=== PATIENT | female | born 1985 | race Caucasian/White ===

== ENCOUNTER 2021-09-02 16:53 | Emergency (ER) | payer OTHER, SELFPAY ==
[2021-09-02 17:07] VITALS: BP 130/88; PULSE 84; RESP 14; TEMP 36.6; O2SAT 99
--- NOTE | 2021-09-02 18:39 | ED.HA ---
HPI - Headache General Chief Complaint: Headache Stated Complaint: COLEMAN Time Seen by Provider: 09/02/21 17:59 Source: patient Mode of arrival: ambulatory Limitations: no limitations History of Present Illness HPI Narrative: This is a 35-year-old female that presents to the emergency department for migraine headache. Reports history of migraines. Reports a pounding headache. Associated with nausea. She has been taking her prescribed migraine medications with little relief. She has had this headache over the last 5 days. Reports she thinks it is associated with her menstrual cycle. She has a neurologist that she follows with for her migraines. Reports this is a pretty typical migraine for her. Denies fever, vision changes, vomiting, numbness or weakness. Related Data Home Medications Medication Instructions Recorded Confirmed apremilast [Otezla] 30 mg PO BID 09/02/21 09/02/21 atogepant [Qulipta] 60 mg PO DAILY 09/02/21 buspirone 30 mg PO BID 09/02/21 cariprazine [Vraylar] 3 mg PO DAILY 09/02/21 cyclobenzaprine [Flexeril] 10 mg PO HS 09/02/21 doxycycline monohydrate [Oracea] 40 mg PO DAILY 09/02/21 duloxetine [Cymbalta] 60 mg PO BID 09/02/21 gabapentin 300 mg PO QA 09/02/21 gabapentin 600 mg PO HS 09/02/21 hydroxychloroquine 200 mg PO DAILY 09/02/21 lemborexant [Dayvigo] 5 mg PO HS 09/02/21 lisdexamfetamine [Vyvanse] 50 mg PO DAILY 09/02/21 mirabegron [Myrbetriq] 25 mg PO DAILY 09/02/21 nortriptyline 10 mg PO HS 09/02/21 quetiapine [Seroquel] 100 mg PO HS 09/02/21 quetiapine [Seroquel] 400 mg PO DAILY 09/02/21 rabeprazole 20 mg PO BID 09/02/21 topiramate [Topamax] 100 mg PO BID 09/02/21 Allergies Allergy/AdvReac Type Severity Reaction Status Date / Time amitriptyline Allergy Anaphylaxis Verified 09/02/21 17:29 clindamycin Allergy Hives Verified 09/02/21 17:29 codeine Allergy Hives Verified 09/02/21 17:29 Penicillins Allergy Hives Verified 09/02/21 17:29 perphenazine Allergy Anaphylaxis Verified 09/02/21 17:29 Sulfa (Sulfonamide Allergy Hives Verified 09/02/21 17:29 Antibiotics) Review of Systems Review of Systems: CONSTITUTIONAL: Denies fever EYES: Denies visual changes GASTROINTESTINAL: Denies vomiting NEUROLOGIC: Reports headache. Denies numbness, or weakness. All systems reviewed & are unremarkable except as noted in HPI and below PMFSH Past Medical History Medical History (Updated 09/02/21 @ 20:35 by Samantha Olivier PA-C) History of bipolar disorder History of gastroesophageal reflux (GERD) History of migraine Social History Social History (Updated 09/02/21 @ 18:41 by Saamntha Olivier PA-C) Substance use: never Exam Narrative: GENERAL: Well-appearing, well-nourished, and in no acute distress. HEAD: Normocephalic, atraumatic. EYES: PERRLA and EOMI. ENT: Nares clear, no rhinorrhea or epistaxis. Mucous membranes moist. Oropharynx without tonsillar hypertrophy exudate or other lesions. Bilateral TMs pearly florez non-bulging NECK: Supple. No adenopathy or masses. CHEST: Clear to auscultation. No respiratory distress. No wheezes rales or rhonchi HEART: Regular rate and rhythm. No murmur heard. Normal peripheral pulses. EXTREMITIES: Normal range of motion. No edema. Strength equal in bilateral upper and lower extremities (5/5) SKIN: Warm, dry, no rash. NEURO: No focal deficits. Alert and oriented x3. CN II-XII grossly intact PSYCH: Normal mood and affect Course Vital Signs Vital signs: Vital Signs Temperature 97.9 F 09/02/21 17:07 Pulse Rate 84 09/02/21 17:07 Respiratory Rate 14 09/02/21 17:07 Blood Pressure 130/88 09/02/21 17:07 Pulse Oximetry 99 09/02/21 17:07 Temperature 97.9 F 09/02/21 17:07 Pulse Rate 84 09/02/21 17:07 Respiratory Rate 14 09/02/21 17:07 Blood Pressure 130/88 09/02/21 17:07 Pulse Oximetry 99 09/02/21 17:07 MDM - Headache MDM Narrative Medical decision making narrative: Patient presents to the emergenc
[2021-09-02] MEDS: SODIUM CHLORIDE 0.9% IV 1,000 ML 999 ML IV CONT (18:54)
[2021-09-02] MEDS: KETOROLAC 30 MG/ML VIAL (*BKC) IV PUSH (18:55)
[2021-09-02] MEDS: METOCLOPRAMIDE HCL INJ 10 MG/2 ML VIAL IV PUSH (18:55)
[2021-09-02] MEDS: diphenhydrAMINE HCl INJ 50 MG/ML VIAL 25 MG IV PUSH (18:55)
== END 2021-09-02 21:20 | disposition home or self-care (01) ==
PROVIDERS: Emergency Provider Emergency Medicine
DX: G43.909 Migraine, unspecified, not intractable, without status migrainosus (principal); F31.9 Bipolar disorder, unspecified; K21.9 Gastro-esophageal reflux disease without esophagitis
CPT/HCPCS: 81025; 96361; 96374; 96375; 99284; J0131; J1100; J1200; J1885; J2765; J7030

== ENCOUNTER 2023-01-24 17:31 | Emergency (ER) | payer BC, SELFPAY ==
[2023-01-24 17:32] VITALS: BP 130/85; PULSE 94; RESP 19; TEMP 36.3; O2SAT 98
--- NOTE | 2023-01-24 17:34 | ED.HA ---
HPI - Headache General Chief Complaint: Headache Stated Complaint: migraine Time Seen by Provider: 01/24/23 17:33 Source: patient and family (spouse) Mode of arrival: ambulatory Limitations: no limitations History of Present Illness HPI Narrative: patient is a pleasant 37 yo female with a past medical history of migraines, bipolar disorder, and GERD who presents to the ED today ambulatory with a steady gait for evaluation of a migraine headache that is typical of her normal that has been going on over the last 24 hours. She states she took her prescribed Imitrex without relief. She states that she is currently going through studies for to get an APAP machine for sleep apnea. She states she has been having more headaches since then. She states she sees a neurologist at [facility] and she saw him about 1 month ago and then will see him again in March. She states this is her typical migraine headache. She has nausea as well as light sensitivity. Denies any sound sensitivity. Denies any fever, chills, visual disturbances, numbness and tingling right upper lower extremities, weakness upper lower extremities, or any other symptoms. denies chance of , Related Data Home Medications Medication Instructions Recorded Confirmed apremilast 30 mg tablet (Otezla) 30 mg PO BID 09/02/21 09/02/21 atogepant 60 mg tablet (Qulipta) 60 mg PO DAILY 09/02/21 buspirone 30 mg tablet 30 mg PO BID 09/02/21 cariprazine 3 mg capsule (Vraylar) 3 mg PO DAILY 09/02/21 cyclobenzaprine 10 mg tablet 10 mg PO HS 09/02/21 doxycycline monohydrate 40 mg 40 mg PO DAILY 09/02/21 capsule,immediate - delay release (Oracea) duloxetine 60 mg capsule,delayed 60 mg PO BID 09/02/21 release (Cymbalta) gabapentin 300 mg tablet 300 mg PO QAM 09/02/21 gabapentin 600 mg tablet 600 mg PO HS 09/02/21 hydroxychloroquine 200 mg tablet 200 mg PO DAILY 09/02/21 lemborexant 5 mg tablet (Dayvigo) 5 mg PO HS 09/02/21 lisdexamfetamine 50 mg capsule 50 mg PO DAILY 09/02/21 (Vyvanse) mirabegron 25 mg tablet,extended 25 mg PO DAILY 09/02/21 release 24 hr (Myrbetriq) nortriptyline 10 mg capsule 10 mg PO HS 09/02/21 quetiapine 100 mg tablet (Seroquel) 100 mg PO HS 09/02/21 quetiapine 400 mg tablet (Seroquel) 400 mg PO DAILY 09/02/21 rabeprazole 20 mg tablet,delayed 20 mg PO BID 09/02/21 release topiramate 100 mg tablet (Topamax) 100 mg PO BID 09/02/21 Allergies Allergy/AdvReac Type Severity Reaction Status Date / Time amitriptyline Allergy Anaphylaxis Verified 01/24/23 17:36 clindamycin Allergy Hives Verified 01/24/23 17:36 codeine Allergy Hives Verified 01/24/23 17:36 Penicillins Allergy Hives Verified 01/24/23 17:36 perphenazine Allergy Anaphylaxis Verified 01/24/23 17:36 Sulfa (Sulfonamide Allergy Hives Verified 01/24/23 17:36 Antibiotics) bacitracin AdvReac Hives Verified 01/24/23 17:36 [From Neosporin ([id number])] mupirocin AdvReac Hives Verified 01/24/23 17:36 neomycin AdvReac Hives Verified 01/24/23 17:36 [From Neosporin ([id number])] polymyxin B AdvReac Hives Verified 01/24/23 17:36 [From Neosporin ([id number])] Review of Systems Review of Systems: CONSTITUTIONAL: Denies fever, chills, or sweats. EYES: Denies visual changes, redness, or discharge. ENT: Denies rhinorrhea, congestion, sore throat, or otalgia. CARDIOVASCULAR: Denies chest pain, palpitations, or edema. RESPIRATORY: Denies cough or dyspnea. GASTROINTESTINAL:nausea. denies vomiting or abdominal pain. SKIN: Denies rash or itching. MUSCULOSKELETAL: Denies back pain, joint pain, or myalgia. NEUROLOGIC: typical migraine headache. denies numbness, or weakness. PSYCHIATRIC: Denies anxiety or depression. All systems reviewed & are unremarkable except as noted in HPI and below PMFSH Past Medical History Medical History History of bipolar disorder History of gastroes
[2023-01-24] MEDS: SODIUM CHLORIDE 0.9% IV 1,000 ML 999 ML IV CONT (18:18)
[2023-01-24] MEDS: METOCLOPRAMIDE HCL INJ 10 MG/2 ML VIAL IV PUSH (18:19)
[2023-01-24] MEDS: KETOROLAC 30 MG/ML VIAL (*BKC) IV PUSH (18:22)
[2023-01-24] MEDS: diphenhydrAMINE HCl INJ 50 MG/ML VIAL 25 MG IV PUSH (18:24)
[2023-01-24] MEDS: DIHYDROERGOTAMINE MESYLATE 1 MG/ML AMP IV PUSH (18:38)
[2023-01-24 19:23] VITALS: BP 126/95; PULSE 67; RESP 16; O2SAT 96
== END 2023-01-24 19:24 | disposition home or self-care (01) ==
PROVIDERS: Emergency Provider Nurse Practitioner
DX: G43.909 Migraine, unspecified, not intractable, without status migrainosus (principal); K21.9 Gastro-esophageal reflux disease without esophagitis; F31.9 Bipolar disorder, unspecified
CPT/HCPCS: 96361; 96374; 96375; 99284; J1110; J1200; J1885; J2765; J7030

== ENCOUNTER 2023-04-20 04:58 | Emergency (ER) | payer BC, SELFPAY ==
[2023-04-20 05:01] VITALS: BP 129/80; PULSE 118; RESP 19; TEMP 36.3; O2SAT 98
--- NOTE | 2023-04-20 05:26 | ED.GENADULT ---
HPI - General Adult General Chief complaint: Headache Stated complaint: COLEMAN, v/d Time Seen by Provider: 04/20/23 05:11 History of Present Illness HPI narrative: Patient 37-year-old female who presents the emergency department with chief complaint of headache. Patient reports that she has prior history of migraines reports that this is not the worst headache of her life but reports that for several days she has been having discomfort and reports that has not been relieved with her home medications. Patient states that she is started vomiting and has not been able to keep things down. Related Data Home Medications Medication Instructions Recorded Confirmed apremilast 30 mg tablet (Otezla) 30 mg PO BID 09/02/21 09/02/21 atogepant 60 mg tablet (Qulipta) 60 mg PO DAILY 09/02/21 buspirone 30 mg tablet 30 mg PO BID 09/02/21 cariprazine 3 mg capsule (Vraylar) 3 mg PO DAILY 09/02/21 cyclobenzaprine 10 mg tablet 10 mg PO HS 09/02/21 doxycycline monohydrate 40 mg 40 mg PO DAILY 09/02/21 capsule,immediate - delay release (Oracea) duloxetine 60 mg capsule,delayed 60 mg PO BID 09/02/21 release (Cymbalta) gabapentin 300 mg tablet 300 mg PO QAM 09/02/21 gabapentin 600 mg tablet 600 mg PO HS 09/02/21 hydroxychloroquine 200 mg tablet 200 mg PO DAILY 09/02/21 lemborexant 5 mg tablet (Dayvigo) 5 mg PO HS 09/02/21 lisdexamfetamine 50 mg capsule 50 mg PO DAILY 09/02/21 (Vyvanse) mirabegron 25 mg tablet,extended 25 mg PO DAILY 09/02/21 release 24 hr (Myrbetriq) nortriptyline 10 mg capsule 10 mg PO HS 09/02/21 quetiapine 100 mg tablet (Seroquel) 100 mg PO HS 09/02/21 quetiapine 400 mg tablet (Seroquel) 400 mg PO DAILY 09/02/21 rabeprazole 20 mg tablet,delayed 20 mg PO BID 09/02/21 release topiramate 100 mg tablet (Topamax) 100 mg PO BID 09/02/21 Allergies Allergy/AdvReac Type Severity Reaction Status Date / Time amitriptyline Allergy Anaphylaxis Verified 04/20/23 05:09 clindamycin Allergy Hives Verified 04/20/23 05:09 codeine Allergy Hives Verified 04/20/23 05:09 Penicillins Allergy Hives Verified 04/20/23 05:09 perphenazine Allergy Anaphylaxis Verified 04/20/23 05:09 Sulfa (Sulfonamide Allergy Hives Verified 04/20/23 05:09 Antibiotics) bacitracin AdvReac Hives Verified 04/20/23 05:09 [From Neosporin ([id number])] mupirocin AdvReac Hives Verified 04/20/23 05:09 neomycin AdvReac Hives Verified 04/20/23 05:09 [From Neosporin ([id number])] polymyxin B AdvReac Hives Verified 04/20/23 05:09 [From Neosporin ([id number])] Review of Systems Review of Systems: A 10 system review of systems was completed on the patient and is negative except for what is stated in the HPI. Nursing and ancillary documentation was reviewed. [facility] Past Medical History Medical History History of bipolar disorder History of gastroesophageal reflux (GERD) History of migraine Social History Social History Substance use: never Exam Narrative: GENERAL: Well-appearing, well-nourished, and in no acute distress. HEAD: Normocephalic, atraumatic. EYES: PERRLA and EOMI. ENT: Nares clear, no rhinorrhea or epistaxis. Mucous membranes moist. NECK: Supple. CHEST: Clear to auscultation. No respiratory distress. HEART: Regular rate and rhythm. No murmur heard. Normal peripheral pulses. ABDOMEN: Soft, nontender, nondistended, normal active bowel sounds. EXTREMITIES: Normal range of motion. No edema. SKIN: Warm, dry, no rash. NEURO: No focal deficits. Alert and oriented x3. PSYCH: Normal mood and affect. Course Vital Signs Vital signs: Vital Signs Temperature 36.3 C L 04/20/23 05:01 Pulse Rate 118 H 04/20/23 05:01 Respiratory Rate 19 04/20/23 05:01 Blood Pressure 129/80 04/20/23 05:01 Pulse Oximetry 98 04/20/23 05:01 Oxygen Del
[2023-04-20] MEDS: KETOROLAC 30 MG/ML VIAL (*BKC) 15 MG IV PUSH (05:39)
[2023-04-20] MEDS: diphenhydrAMINE HCl INJ 50 MG/ML VIAL IV PUSH (05:46)
[2023-04-20] MEDS: METOCLOPRAMIDE HCL INJ 10 MG/2 ML VIAL IV PUSH (05:50)
[2023-04-20] MEDS: MAGNESIUM SULF 1 GM/D5W 100 ML 1 GM/100 ML BAG IVPB (05:56)
[2023-04-20] MEDS: SODIUM CHLORIDE 0.9% IV 1,000 ML 999 ML IV CONT (05:56)
== END 2023-04-20 07:04 | disposition home or self-care (01) ==
PROVIDERS: Emergency Provider Emergency Medicine
DX: G43.909 Migraine, unspecified, not intractable, without status migrainosus (principal); K21.9 Gastro-esophageal reflux disease without esophagitis; F31.9 Bipolar disorder, unspecified
CPT/HCPCS: 96365; 96375; 99284; J1100; J1200; J1885; J2765; J3475; J7030

== ENCOUNTER 2023-04-27 16:39 | Emergency (ER) | payer BC, SELFPAY ==
[2023-04-27 16:40] VITALS: BP 159/99; PULSE 106; RESP 18; TEMP 36.1; O2SAT 97
--- NOTE | 2023-04-27 16:50 | ED.HA ---
HPI - Headache General Chief Complaint: Headache <DOUGLAS Fuentes Last Filed: 04/27/23 17:03> Stated Complaint: migraine <DOUGLAS Fuentes Last Filed: 04/27/23 17:03> Time Seen by Provider: 04/27/23 17:37 <DOUGLAS Fuentes Last Filed: 04/27/23 17:03> Source: patient <DOUGLAS Fuentes Last Filed: 04/27/23 17:03> Mode of arrival: ambulatory <DOUGLAS Fuentes Last Filed: 04/27/23 17:03> Limitations: no limitations <DOUGLAS Fuentes Last Filed: 04/27/23 17:03> History of Present Illness HPI Narrative: Patient is a 37 y/o female who presents to the ED with c/o migraine x3d. Patient reports hx of migraines. Typically a few per week. She does see a neurologist. Typically on several meds for her migraines, including Sumatriptan, Zolmitriptan, compazine, reglan, Ketoralac. She states she has been out of her medications and waiting on her neurologist to refill. She states this current migraine is present frontally and around to her occipital region. Feels typical of her normal migraines. Reports nausea, denies vomiting, dizziness, lightheadedness, vision changes, photophobia/phonophobia, neck pain, fevers. Patient took Tylenol @ 4pm today. <DOUGLAS Fuentes Last Filed: 04/27/23 17:03> Related Data Home Medications: Home Medications Medication Instructions Recorded Confirmed apremilast 30 mg tablet (Otezla) 30 mg PO BID 09/02/21 09/02/21 atogepant 60 mg tablet (Qulipta) 60 mg PO DAILY 09/02/21 buspirone 30 mg tablet 30 mg PO BID 09/02/21 cariprazine 3 mg capsule (Vraylar) 3 mg PO DAILY 09/02/21 cyclobenzaprine 10 mg tablet 10 mg PO HS 09/02/21 doxycycline monohydrate 40 mg 40 mg PO DAILY 09/02/21 capsule,immediate - delay release (Oracea) duloxetine 60 mg capsule,delayed 60 mg PO BID 09/02/21 release (Cymbalta) gabapentin 300 mg tablet 300 mg PO QAM 09/02/21 gabapentin 600 mg tablet 600 mg PO HS 09/02/21 hydroxychloroquine 200 mg tablet 200 mg PO DAILY 09/02/21 lemborexant 5 mg tablet (Dayvigo) 5 mg PO HS 09/02/21 lisdexamfetamine 50 mg capsule 50 mg PO DAILY 09/02/21 (Vyvanse) mirabegron 25 mg tablet,extended 25 mg PO DAILY 09/02/21 release 24 hr (Myrbetriq) nortriptyline 10 mg capsule 10 mg PO HS 09/02/21 quetiapine 100 mg tablet (Seroquel) 100 mg PO HS 09/02/21 quetiapine 400 mg tablet (Seroquel) 400 mg PO DAILY 09/02/21 rabeprazole 20 mg tablet,delayed 20 mg PO BID 09/02/21 release topiramate 100 mg tablet (Topamax) 100 mg PO BID 09/02/21 <Sharee Mcmullen PA-C - Last Filed: 04/27/23 17:03> Allergies/Adverse Reactions: Allergies Allergy/AdvReac Type Severity Reaction Status Date / Time amitriptyline Allergy Anaphylaxis Verified 04/20/23 05:09 clindamycin Allergy Hives Verified 04/20/23 05:09 codeine Allergy Hives Verified 04/20/23 05:09 Penicillins Allergy Hives Verified 04/20/23 05:09 perphenazine Allergy Anaphylaxis Verified 04/20/23 05:09 Sulfa (Sulfonamide Allergy Hives Verified 04/20/23 05:09 Antibiotics) bacitracin AdvReac Hives Verified 04/20/23 05:09 [From Neosporin ([id number])] mupirocin AdvReac Hives Verified 04/20/23 05:09 neomycin AdvReac Hives Verified 04/20/23 05:09 [From Neosporin ([id number])] polymyxin B AdvReac Hives Verified 04/20/23 05:09 [From Neosporin ([id number])] <Sharee Mcmullen PA-C - Last Filed: 04/27/23 17:03> Review of Systems Eyes: Eyes: Denies change in vision and Denies photophobia <DOUGLAS Fuentes Last Filed: 04/27/23 17:03> ENT: Denies dizziness <Sharee Mcmullen PA-C - Last Filed: 04/27/23 17:03> Gastrointestinal: Gastrointestinal: Reports nausea and Denies vomiting <DOUGLAS Fuentes Last Filed: 04/27/23 17:03> Neurologic: Denies dizziness, Reports headache(s), Denies numbness and Denies weakness <Sharee Yang
[2023-04-27] MEDS: SUMAtriptan SUCCINATE 25 MG TABLET 100 MG PO (17:04)
[2023-04-27] MEDS: METOCLOPRAMIDE HCL 10 MG TABLET PO (17:05)
[2023-04-27] MEDS: PROCHLORPERAZINE MALEATE 5 MG TABLET 10 MG PO (17:05)
[2023-04-27] MEDS: diphenhydrAMINE HCl CAP 25 MG CAPSULE PO (17:06)
[2023-04-27] MEDS: KETOROLAC (*BKC) 60 MG/2 ML VIAL IM (17:06)
[2023-04-27] MEDS: MAGNESIUM SULF 2 GM/WATER 50ML 2 GM/50 ML BAG IVPB (18:38)
[2023-04-27 18:53] LABS: Basophils Percent Auto 0.2 % (0.2-1.2); Eosinophils Absolute Auto 0.1 K/mm3 (0-0.3); Eosinophils Percent Auto 1.1 % (0-4.4); Hematocrit 36.5 % (37.0-47.0); Hemoglobin 12.2 g/dL (12.0-15.0); Immature Granulocyte Absolute 0.07 K/mm3 (0.00-0.031); Immature Granulocyte Percent A 0.8 % (0-0.5); Lymphocytes Absolute Auto 3.01 K/mm3 (0.9-3.2); Lymphocytes Percent Auto 34.4 % (18.3-44.2); Mean Corpuscular HGB Conc 33.4 g/dl (32-36); Mean Corpuscular Hemoglobin 30.4 pg (26-34); Mean Platelet Volume 9.5 fl (7.4-10.4); Monocytes Absolute Auto 0.7 K/mm3 (0.1-0.6); Monocytes Percent Auto 8.5 % (2.6-8.5); Neutrophils Absolute Auto 4.8 K/mm3 (1.3-6.7); Platelet Count Result 321 k/mm3 (150-375); Red Blood Count 4.01 M/mm3 (4.2-5.4); Red Cell Distribution Width 13.2 % (11.5-14.5); White Blood Count 8.8 K/mm3 (4.5-10.0)
[2023-04-27 19:06] LABS: Alanine Aminotransferase 20 U/L (6-35); Albumin Level 4.5 g/dL (3.5-5.1); Alkaline Phosphatase 71 U/L (38-126); Anion Gap 13 mmol/L (8-16); Aspartate Amino Transferase 25 U/L (14-36); Bilirubin,Total 0.3 mg/dL (0.2-1.3); Blood Urea Nitrogen 12 mg/dL (7-17); Calcium 9.1 mg/dL (8.4-10.2); Carbon Dioxide 21 mmol/L (22-30); Chloride 104 mmol/L (98-107); Estimated CRCL calculation 94 ml/min; Estimated Glomerular Filt Rate > 60; Glucose 92 mg/dL (65-110); Magnesium 1.8 mg/dL (1.6-2.3); Phosphorus 4.7 mg/dL (2.5-4.5); Potassium 4.1 mmol/L (3.4-5.0); Sodium 138 mmol/L (137-145)
[2023-04-27 19:12] VITALS: BP 122/91; PULSE 80; RESP 18; O2SAT 97
[2023-04-27 19:41] VITALS: BP 122/80; PULSE 74; RESP 18; O2SAT 97
== END 2023-04-27 19:43 | disposition home or self-care (01) ==
PROVIDERS: Emergency Provider Physician Assistant
DX: R51.9 Headache, unspecified (principal); F31.9 Bipolar disorder, unspecified; K21.9 Gastro-esophageal reflux disease without esophagitis
CPT/HCPCS: 36415; 80053; 83735; 84100; 85025; 96365; 96372; 99284; A9270; J1885; J3475

== ENCOUNTER 2023-07-20 09:47 | Emergency (ER) | payer BC, SELFPAY ==
[2023-07-20] VITALS (9 sets, daily range): BP systolic 104–136; BP diastolic 75–85; PULSE 83–120; RESP 14–20; TEMP 36.5–36.8; O2SAT 97–100
--- NOTE | 2023-07-20 12:37 | ED.HA ---
HPI - Headache General Chief Complaint: Headache Stated Complaint: migraine Time Seen by Provider: 07/20/23 12:37 Source: patient and old records reviewed Mode of arrival: ambulatory Limitations: no limitations History of Present Illness HPI Narrative: Patient is a 37-year-old female who presents the ED with report of migraine headache. Patient has a long history of migraines and sees a neurologist at [facility] [address]. She takes imitrex and nurtec for her migraines, denies improvement of her current migraine with these medicines. She has also typically prescribed ketorlac, reglan, compazine for her migraines. She reports having a persistent migraine for the last 4-5 days. Feels typical of her normal migraines. States pain is mostly present in posterior head. Reports nausea, denies photophobia, phonophobia, vomiting, vision changes, fevers, focal weakness, numbness. Scheduled to see her neurologist in August. Related Data Home Medications Medication Instructions Recorded Confirmed apremilast 30 mg tablet (Otezla) 30 mg PO BID 09/02/21 09/02/21 atogepant 60 mg tablet (Qulipta) 60 mg PO DAILY 09/02/21 buspirone 30 mg tablet 30 mg PO BID 09/02/21 cariprazine 3 mg capsule (Vraylar) 3 mg PO DAILY 09/02/21 cyclobenzaprine 10 mg tablet 10 mg PO HS 09/02/21 doxycycline monohydrate 40 mg 40 mg PO DAILY 09/02/21 capsule,immediate - delay release (Oracea) duloxetine 60 mg capsule,delayed 60 mg PO BID 09/02/21 release (Cymbalta) gabapentin 300 mg tablet 300 mg PO QAM 09/02/21 gabapentin 600 mg tablet 600 mg PO HS 09/02/21 hydroxychloroquine 200 mg tablet 200 mg PO DAILY 09/02/21 lemborexant 5 mg tablet (Dayvigo) 5 mg PO HS 09/02/21 lisdexamfetamine 50 mg capsule 50 mg PO DAILY 09/02/21 (Vyvanse) mirabegron 25 mg tablet,extended 25 mg PO DAILY 09/02/21 release 24 hr (Myrbetriq) nortriptyline 10 mg capsule 10 mg PO HS 09/02/21 quetiapine 100 mg tablet (Seroquel) 100 mg PO HS 09/02/21 quetiapine 400 mg tablet (Seroquel) 400 mg PO DAILY 09/02/21 rabeprazole 20 mg tablet,delayed 20 mg PO BID 09/02/21 release topiramate 100 mg tablet (Topamax) 100 mg PO BID 09/02/21 Allergies Allergy/AdvReac Type Severity Reaction Status Date / Time amitriptyline Allergy Anaphylaxis Verified 07/20/23 09:51 clindamycin Allergy Hives Verified 07/20/23 09:51 codeine Allergy Hives Verified 07/20/23 09:51 Penicillins Allergy Hives Verified 07/20/23 09:51 perphenazine Allergy Anaphylaxis Verified 07/20/23 09:51 Sulfa (Sulfonamide Allergy Hives Verified 07/20/23 09:51 Antibiotics) bacitracin AdvReac Hives Verified 07/20/23 09:51 [From Neosporin ([id number])] mupirocin AdvReac Hives Verified 07/20/23 09:51 neomycin AdvReac Hives Verified 07/20/23 09:51 [From Neosporin ([id number])] polymyxin B AdvReac Hives Verified 07/20/23 09:51 [From Neosporin ([id number])] Review of Systems Review of Systems: CONSTITUTIONAL: Denies fever, chills, or sweats. ENT: See HPI. GASTROINTESTINAL: See HPI. NEUROLOGIC: See HPI. All systems reviewed & are unremarkable except as noted in HPI and below PMFSH Past Medical History Medical History History of bipolar disorder History of gastroesophageal reflux (GERD) History of migraine Social History Social History Substance use: never Exam Narrative: GENERAL: Well appearing, obese with BMI of 36.3, non-toxic, in no acute distress. HEAD: Normocephalic, atraumatic. EYES: PERRL/EOMI, conjunctiva clear. RESPIRATORY: Airway patent, respirations nonlabored. Clear to auscultation bilaterally, no rales, rhonchi, wheezing. CARDIOVASCULAR: Borderline tachycardic with regular rhythm without murmurs, rubs, or gallops. MUSCULOSKELETAL: Moves all extremities. No gross deformities. SKIN: Warm, dry, normal color. NEURO: A&O
[2023-07-20] MEDS: ACETAMINOPHEN 500 MG TABLET 1000 MG PO (13:03)
[2023-07-20] MEDS: SODIUM CHLORIDE 0.9% IV 1,000 ML 999 ML IV CONT (13:03)
[2023-07-20] MEDS: KETOROLAC 30 MG/ML VIAL (*BKC) IV PUSH (13:04)
[2023-07-20] MEDS: PROCHLORPERAZINE EDISYLATE 10 MG/2 ML VIAL IV PUSH (13:04)
[2023-07-20] MEDS: diphenhydrAMINE HCl INJ 50 MG/ML VIAL 25 MG IV PUSH (13:05)
[2023-07-20] MEDS: METOCLOPRAMIDE HCL INJ 10 MG/2 ML VIAL IV PUSH (13:05)
== END 2023-07-20 14:55 | disposition home or self-care (01) ==
PROVIDERS: Emergency Provider Physician Assistant
DX: G43.909 Migraine, unspecified, not intractable, without status migrainosus (principal); F31.9 Bipolar disorder, unspecified; K21.9 Gastro-esophageal reflux disease without esophagitis
CPT/HCPCS: 96361; 96374; 96375; 99284; A9270; J0780; J1200; J1885; J2765; J7030

== ENCOUNTER 2023-12-21 00:49 | Day surgery (SDC) | payer BC, SELFPAY ==
--- NOTE | 2023-12-14 15:52 | PC.NURSE ---
Report to the Outpatient Waiting Room, entrance under the green pavilion located off [facility], at time _06:00AM on date _12/21/23 . Planned Procedure Time: _07:30AM . Time changes happen often and if your time is changed the preop area will call you the afternoon before. - You and your visitor will be asked to self-screen and do not enter if you have any COVID symptoms. - A mask is optional within the hospital at this time. Patients may have clear liquids (water, carbonated beverages, clear teas, apple juice) until 3 hours prior to surgery with a maximum of 20 ounces. - No food from midnight until time of surgery Take the following medications with a SIP of water the morning of surgery: _QULIPTA, BUSPIRONE, ADDERALL, CYMBLATA, GABAPENTIN, SINGULAIR, SEROQUEL, RABERPRAZOLE__*VALIUM IF NEEDED* DO NOT STOP ANY OF YOUR OTHER PRESCRIPTION MEDICATIONS PRIOR TO SURGERY ?EXCEPT THE FOLLOWING Medications to discontinue per physician ___TAKE YOUR NEEDED MEDS IF YOU EXPERIENCE A MIGRAINE OR AN EPISODE OF CYCLICAL VOMITING-PLEASE NOTIFY US IF YOU ARE EXPERIENCING INTRACTABLE VOMITING OR UNRESOLVED MIGRAINE SYMPTOMS THE DAY OF SURGERY Date to take last dose____N/A Please no make-up, nail maori, hairspray, perfume, deodorant, or body powder the day of surgery. No jewelry (including any body piercings) or valuables the day of surgery, leave them at home. Please take a shower or bath the night before, or the morning of, surgery with an antibacterial soap. Wear comfortable, loose fitting clothing. Children are encouraged to wear pajamas. - Jewelry must be removed prior to entering the operating room. Rings and piercings that are not removed may be cut off. - The hospital will not accept responsibility for valuables. - Please leave all valuables, including medications, at home the day of surgery. If you are going home after surgery, a licensed team otr truck driver must drive you home. - NO public transportation without another adult if you receive anesthesia. - We recommend that an adult stay with you for 24 hours following discharge. - We also recommend that you do not drive, make important decision, drink alcoholic beverages, or take any drugs that were not prescribed by your health care provider for at least 24 hours after your discharge time. Follow any additional instructions given to you from your surgeon. If you or anyone in your household have experienced Covid symptoms in the past week, please notify your surgeon or the nurse liaison at the phone number below for possible testing. Telephone instructions given to __ASHLEY and asked if any additional questions and then verbalized understanding. Patient advised to call surgeon office or pre surgery nurse liaison [phone] if any additional questions.
[2023-12-21] VITALS (8 sets, daily range): BP systolic 107–133; BP diastolic 64–86; PULSE 81–91; RESP 12–18; TEMP 36.3–36.6; O2SAT 96–100
[2023-12-21] MEDS: ACETAMINOPHEN 500 MG TABLET 1000 MG PO (06:59)
[2023-12-21] MEDS: LACTATED RINGERS 1,000 ML 30 ML IV CONT (07:00)
--- NOTE | 2023-12-21 07:09 | PM.IMHP ---
H&P: HPI History of Present Illness Date/Time: 12/21/23 07:09 Chief Complaint: chronic sinusitis Review of Systems Review of Systems: All systems reviewed & are unremarkable except as noted in HPI and below PMFSH Past Medical History Medical History History of bipolar disorder History of gastroesophageal reflux (GERD) History of migraine Social History Social History Smoking status: Never smoker Substance use: never Substance use type: does not use Living arrangements: with family Spiritual care concerns: No Meds Home Medications and Allergies Home Medications Medication Instructions Recorded Confirmed Type atogepant 60 mg tablet (Qulipta) 60 mg PO DAILY 09/02/21 12/21/23 History buspirone 30 mg tablet 30 mg PO BID 09/02/21 12/21/23 History cyclobenzaprine 10 mg tablet 10 mg PO HS PRN Pain, Mild 09/02/21 12/21/23 History duloxetine 60 mg capsule,delayed 20 mg PO DAILY 09/02/21 12/21/23 History release (Cymbalta) gabapentin 300 mg tablet 300 mg PO QAM 09/02/21 12/21/23 History gabapentin 600 mg tablet 600 mg PO HS 09/02/21 12/21/23 History nortriptyline 10 mg capsule 30 mg PO HS 09/02/21 12/21/23 History quetiapine 400 mg tablet (Seroquel) 400 mg PO DAILY 09/02/21 12/21/23 History rabeprazole 20 mg tablet,delayed 20 mg PO BID 09/02/21 12/21/23 History release butalbital 50 mg-acetaminophen 325 1 cap PO Q4H PRN MIGAINE 12/14/23 12/21/23 History mg-caffeine 40 mg-codeine 30 mg cap butorphanol 10 mg/mL nasal spray 2 spray intranasal Q3H PRN 12/14/23 12/21/23 History Migraine Headache dextroamphetamine-amphetamine 20 20 mg PO DAILY 12/14/23 12/21/23 History mg tablet (Adderall) diazepam 5 mg tablet (Valium) 5 mg PO BID PRN CYCLICAL VOMITING 12/14/23 12/21/23 History dicyclomine 20 mg tablet 20 mg PO QID PRN Vomiting 12/14/23 12/21/23 History dihydroergotamine (Trudhesa) 1 spray intranasal ONCE 12/14/23 12/21/23 History diphenoxylate-atropine 2.5 1 tablet PO QID PRN Diarrhea 12/14/23 12/21/23 History mg-0.025 mg tablet eszopiclone 2 mg tablet (Lunesta) 2 mg PO HS 12/14/23 12/21/23 History famotidine 40 mg tablet 40 mg PO HS 12/14/23 12/21/23 History ketorolac 10 mg tablet 10 mg PO Q4H PRN Migraine Headache 12/14/23 12/21/23 History medroxyprogesterone 150 mg/mL 150 mg IM [id number] 12/14/23 12/21/23 History intramuscular suspension metoclopramide HCl 10 mg tablet 10 mg PO Q4H PRN Nausea And 12/14/23 12/21/23 History (Reglan) Vomiting metoclopramide HCl 15 mg/spray 1 spray intranasal QID PRN Vomiting 12/14/23 12/21/23 History nasal spray with pump montelukast 10 mg tablet 10 mg PO DAILY 12/14/23 12/21/23 History (Singulair) onabotulinumtoxinA 200 unit 200 unit IM [id number] 12/14/23 12/21/23 History solution for injection (Botox) ondansetron HCl 8 mg tablet 8 mg PO Q8H PRN Nausea 12/14/23 12/21/23 History prochlorperazine maleate 10 mg 10 mg PO Q4H PRN Nausea 12/14/23 12/21/23 History tablet promethazine 25 mg tablet 25 mg PO DAILY PRN Migraine 12/14/23 12/21/23 History Headache rimegepant 75 mg disintegrating 75 mg PO QPM 12/14/23 12/21/23 History tablet (Nurtec ODT) scopolamine base 1 mg over 3 days 1 patch transdermal Q72H 12/14/23 12/21/23 History transdermal patch secukinumab 150 mg/mL subcutaneous 150 mg subcut MONTHLY 12/14/23 12/21/23 History pen injector (Cosentyx Pen 300 mg/2 Pens () sucralfate 1 gram tablet 1 g PO BIDWMEAL 12/14/23 12/21/23 History sumatriptan succinate 100 mg 100 mg PO ONCE 12/14/23 12/21/23 History tablet (Imitrex) ubrogepant 100 mg tablet (Ubrelvy) 100 mg PO ONCE 12/14/23 12/21/23 History vibegron 75 mg tablet (Gemtesa) 75 mg PO DAILY 12/14/23 12/21/23 History zolmitriptan 5 mg tablet (Zomig) 5 mg PO PRN PRN Migraine Headache 12/14/23 12/21/23 History Allergies Allergy/AdvReac Type Severity Reaction Status Date / Abram
--- NOTE | 2023-12-21 07:11 | WPDHPUPDATE1 ---
History and Physical Update Update Date/Time: 12/21/23 07:11 History and Physical has been reviewed, including an updated exam of the patient. There are NO changes in the patient's condition. Risks, benefits, and alternatives have been discussed and questions answered. Patient agrees to proceed with procedure.
--- NOTE | 2023-12-21 07:52 | WPDANESEPPF ---
Anes - Initial Pre Proc Eval Procedure: Operation Date: 12/21/23 08:30 Proposed Procedures p Image Guided Bilateral Ethmoidectomy, Bilateral Maxillary Antrostomy, Bilateral Turbinate Reduction - Dale Latham MD Date/Time: 12/21/23 07:52 Surgeon: Dale Latham MD Pre Op Diagnosis: Chronic Sinusitis, Turbinate Hypertrophy Patient Data Age: 38 Gender: F Height: 1.7 m Weight: 105.4 kg Last Vital Signs Temp 97.8 F 12/21/23 06:41 Pulse 90 12/21/23 06:41 Resp 18 12/21/23 06:41 BP 133/86 12/21/23 06:41 Pulse Ox 97 12/21/23 06:41 O2 Del Method Room Air 12/21/23 06:41 Allergies Allergy/AdvReac Type Severity Reaction Status Date / Time amitriptyline Allergy Other Verified 12/21/23 07:07 clindamycin Allergy Hives Verified 12/21/23 07:07 codeine Allergy Hives Verified 12/21/23 07:07 Penicillins Allergy Hives Verified 12/21/23 07:07 perphenazine Allergy Other Verified 12/21/23 07:07 Sulfa (Sulfonamide Allergy Hives Verified 12/21/23 07:07 Antibiotics) bacitracin AdvReac Hives Verified 12/21/23 07:07 [From Neosporin ([id number])] mupirocin AdvReac Hives Verified 12/21/23 07:07 neomycin AdvReac Hives Verified 12/21/23 07:07 [From Neosporin ([id number])] polymyxin B AdvReac Hives Verified 12/21/23 07:07 [From Neosporin ([id number])] Home Medications Medication Instructions Recorded Confirmed Type atogepant 60 mg tablet (Qulipta) 60 mg PO DAILY 09/02/21 12/21/23 History buspirone 30 mg tablet 30 mg PO BID 09/02/21 12/21/23 History cyclobenzaprine 10 mg tablet 10 mg PO HS PRN Pain, Mild 09/02/21 12/21/23 History duloxetine 60 mg capsule,delayed 20 mg PO DAILY 09/02/21 12/21/23 History release (Cymbalta) gabapentin 300 mg tablet 300 mg PO QAM 09/02/21 12/21/23 History gabapentin 600 mg tablet 600 mg PO HS 09/02/21 12/21/23 History nortriptyline 10 mg capsule 30 mg PO HS 09/02/21 12/21/23 History quetiapine 400 mg tablet (Seroquel) 400 mg PO DAILY 09/02/21 12/21/23 History rabeprazole 20 mg tablet,delayed 20 mg PO BID 09/02/21 12/21/23 History release butalbital 50 mg-acetaminophen 325 1 cap PO Q4H PRN MIGAINE 12/14/23 12/21/23 History mg-caffeine 40 mg-codeine 30 mg cap butorphanol 10 mg/mL nasal spray 2 spray intranasal Q3H PRN 12/14/23 12/21/23 History Migraine Headache dextroamphetamine-amphetamine 20 20 mg PO DAILY 12/14/23 12/21/23 History mg tablet (Adderall) diazepam 5 mg tablet (Valium) 5 mg PO BID PRN CYCLICAL VOMITING 12/14/23 12/21/23 History dicyclomine 20 mg tablet 20 mg PO QID PRN Vomiting 12/14/23 12/21/23 History dihydroergotamine (Trudhesa) 1 spray intranasal ONCE 12/14/23 12/21/23 History diphenoxylate-atropine 2.5 1 tablet PO QID PRN Diarrhea 12/14/23 12/21/23 History mg-0.025 mg tablet eszopiclone 2 mg tablet (Lunesta) 2 mg PO HS 12/14/23 12/21/23 History famotidine 40 mg tablet 40 mg PO HS 12/14/23 12/21/23 History ketorolac 10 mg tablet 10 mg PO Q4H PRN Migraine Headache 12/14/23 12/21/23 History medroxyprogesterone 150 mg/mL 150 mg IM [id number] 12/14/23 12/21/23 History intramuscular suspension metoclopramide HCl 10 mg tablet 10 mg PO Q4H PRN Nausea And 12/14/23 12/21/23 History (Reglan) Vomiting metoclopramide HCl 15 mg/spray 1 spray intranasal QID PRN Vomiting 12/14/23 12/21/23 History nasal spray with pump montelukast 10 mg tablet 10 mg PO DAILY 12/14/23 12/21/23 History (Singulair) onabotulinumtoxinA 200 unit 200 unit IM [id number] 12/14/23 12/21/23 History solution for injection (Botox) ondansetron HCl 8 mg tablet 8 mg PO Q8H PRN Nausea 12/14/23 12/21/23 History prochlorperazine maleate 10 mg 10 mg PO Q4H PRN Nausea 12/14/23 12/21/23 History tablet promethazine 25 mg tablet 25 mg PO DAILY PRN Migraine 12/14/23 12/21/23 History Headache rimegepant 75 mg disintegrating 75 mg PO QPM 12/14/23 12/21/23 History tablet (Nurtec ODT) scopolamine base 1 mg over 3 days 1 patch transd
--- NOTE | 2023-12-21 08:03 | W.PM.PROC2 ---
Procedure Note - Detailed Date of Procedure 12/21/23 Pre-op Diagnosis Chronic Sinusitis, Turbinate Hypertrophy Post-op Diagnosis Same Procedure Performed bilateral maxillary antrostomy, total ethmoidectomy, turbinoplasty, image guided Surgeon Dale Latham MD Anesthesia General Indications chronic refractory sinusitis Findings bilateral nasopore placed. Description of Procedure On the date of procedure the patient was met in the preoperative area and risk and benefits of the procedure reviewed with the patient as documented in the H&P and they elected to proceed with surgery. Patient was brought back to the operating room by the anesthesia team and underwent general endotracheal anesthesia. Once an adequate plane of anesthesia was obtained a timeout was performed to assure the patient identification the patient here to be performed were correct. They were.The patient was then prepped and draped in the normal fashion for endoscopic sinus surgery. The diffusion image guidance system was calibrated and used for the entire case. Afrin-soaked pledgets were placed in the nasal cavities bilaterally. The entire case was performed under endoscopic visualization. Nasal endoscopy was performed at the beginning of the case. 1% lidocaine with 1:100,000 epinephrine was then injected into the root of the middle turbinate and lateral nasal wall. Attention was first directed towards the right side. The middle turbinate was medialized and the osteomeatal complex was identified with a talya probe. Using a 90 degree backbiter, the uncinate process was reflected anteriorly and removed using a combination of sharp and powered dissection. The maxillary antrostomy was then created and widened by identifying the natural ostia and opening the sinus with straight deloris-cut forceps, backbiter, and microdebrider. Continuing with the microdebrider, the anterior ethmoid bulla was opened. Careful dissection was carried out posteriorly, through the basal lamella and posterior ethmoid cells. Using an image guided curved suction as well as J-curette, the posterior most ethmoid cell was identified and the ethmoids were bluntly fractured and dissected from posterior to anterior along the base of the skull. The remaining bone fragments were removed with appropriate curved instruments and microdebrider. Next, The left maxillary antrostomy, and total ethmoidectomy were carried out in identical fashion. No clinical evidence of CSF throughout the case. With all sinuses opened, nasopore packing was placed in the ethmoid acvities bilaterally. Hemostasis was ensured. Lastly, the bilateral inferior turbiantes were reduced submucosally using 2mm microdebrider and then outfractured with a sayer elevator. This significantly opened the airway. At this point, the procedure was concluded. Care the patient was transferred back to the anesthesia team and the patient was awoke in the operating room and transferred back to the PACU in stable condition. Dale Latham M.D. Estimated Blood Loss 20 Drains No Packing Yes (nasopore) Pathology None sent Complications No immediate complications Condition Stable Disposition PACU
[2023-12-21] MEDS: SCOPOLAMINE 1 MG PATCH 1 PATCH TRANSDERM (08:15)
[2023-12-21] MEDS: ceFAZolin 2 GM/D5W 50 ML 2 GM/50 ML BAG IVPB (08:20)
[2023-12-21] MEDS: LIDO 1%/EPINEPHRINE 1:100,000 20 ML VIAL INFILTRATE (08:30)
[2023-12-21] MEDS: OXYMETAZOLINE HCL 0.05% NAS 15 ML BTL (*BKC) 1 SPRAY NASAL (08:31)
[2023-12-21] MEDS: fentaNYL CITRATE INJ (*CRX) 100 MCG/2 ML VIAL 25 MCG IV PUSH ×4 (09:28→09:39)
--- NOTE | 2023-12-21 10:11 | SUR.PHASEII ---
Per patient she has taken oxycodone in the past with no adverse reaction. at bedside and confirms.
[2023-12-21] MEDS: oxyCODONE HCL (*CRX) 5 MG TAB IR PO (10:16)
== END 2023-12-21 10:50 | disposition home or self-care (01) ==
PROVIDERS: Visit Provider Otolaryngology
PROC: (CPT 31256; principal; 2023-12-21 08:30)
DX: J32.9 Chronic sinusitis, unspecified (principal); J34.3 Hypertrophy of nasal turbinates; F31.9 Bipolar disorder, unspecified; K21.9 Gastro-esophageal reflux disease without esophagitis; E66.9 Obesity, unspecified; Z68.36 Body mass index [BMI] 36.0-36.9, adult; Z79.620 Long term (current) use of immunosuppressive biologic
CPT/HCPCS: 31256; 31255; 30140; 61782; A9270; J0690; J1100; J2250; J2405; J2704; J3010; J7030; J7120

== ENCOUNTER 2024-04-17 12:25 | Emergency (ER) | payer BC, SELFPAY ==
--- NOTE | ~2024-04-17 | XR_ITS ---
Clinical Indication: Cough, back pain PA and lateral views of the chest: Comparison: None Findings: Calcified left upper lobe granuloma noted. There is hazy right upper lobe consolidation. C ardiomediastinal silhouette is within normal limits. Extensive lumbar spinal fixation hardware is pre sent. Impression: Focal area of right upper lobe consolidation, likely pneumonia. Follow-up exam after interval therapy should be considered to document resolution. Extensive lumbar spinal fixation hardware. Reviewed, dictated and finalized at location [facility] Impression: Focal area of right upper lobe consolidation, likely pneumonia. Follow-up exam after interval therapy should be considered to document resolution. Extensive lumbar spinal fixation hardware.
[2024-04-17 12:32] VITALS: BP 113/88; PULSE 103; RESP 16; TEMP 36.2; O2SAT 96
--- NOTE | 2024-04-17 13:19 | ED.URI ---
HPI - URI/Sore Throat General Chief Complaint: Upper Respiratory Infection Stated Complaint: Cough/Chest Pain Time Seen by Provider: 04/17/24 13:08 Source: patient and RN notes reviewed Mode of arrival: ambulatory Limitations: no limitations History of Present Illness HPI Narrative: Patient presents today with a 4 to five-day history of productive cough, headache, right rib pain, chest tightness. Denies fever or shortness of breath. She has been taking Tylenol and ibuprofen with mild relief. No history of asthma or COPD. She is a nonsmoker. Related Data Home Medications Medication Instructions Recorded Confirmed atogepant 60 mg tablet (Qulipta) 60 mg PO DAILY 09/02/21 12/21/23 buspirone 30 mg tablet 30 mg PO BID 09/02/21 12/21/23 cyclobenzaprine 10 mg tablet 10 mg PO HS PRN Pain, Mild 09/02/21 12/21/23 duloxetine 60 mg capsule,delayed 20 mg PO DAILY 09/02/21 12/21/23 release (Cymbalta) gabapentin 300 mg tablet 300 mg PO QAM 09/02/21 12/21/23 gabapentin 600 mg tablet 600 mg PO HS 09/02/21 12/21/23 nortriptyline 10 mg capsule 30 mg PO HS 09/02/21 12/21/23 quetiapine 400 mg tablet (Seroquel) 400 mg PO DAILY 09/02/21 12/21/23 rabeprazole 20 mg tablet,delayed 20 mg PO BID 09/02/21 12/21/23 release butalbital 50 mg-acetaminophen 325 1 cap PO Q4H PRN MIGAINE 12/14/23 12/21/23 mg-caffeine 40 mg-codeine 30 mg cap butorphanol 10 mg/mL nasal spray 2 spray intranasal Q3H PRN 12/14/23 12/21/23 Migraine Headache dextroamphetamine-amphetamine 20 20 mg PO DAILY 12/14/23 12/21/23 mg tablet (Adderall) diazepam 5 mg tablet (Valium) 5 mg PO BID PRN CYCLICAL VOMITING 12/14/23 12/21/23 dicyclomine 20 mg tablet 20 mg PO QID PRN Vomiting 12/14/23 12/21/23 dihydroergotamine (Trudhesa) 1 spray intranasal ONCE 12/14/23 12/21/23 diphenoxylate-atropine 2.5 1 tablet PO QID PRN Diarrhea 12/14/23 12/21/23 mg-0.025 mg tablet eszopiclone 2 mg tablet (Lunesta) 2 mg PO HS 12/14/23 12/21/23 famotidine 40 mg tablet 40 mg PO HS 12/14/23 12/21/23 ketorolac 10 mg tablet 10 mg PO Q4H PRN Migraine Headache 12/14/23 12/21/23 medroxyprogesterone 150 mg/mL 150 mg IM [id number] 12/14/23 12/21/23 intramuscular suspension metoclopramide HCl 10 mg tablet 10 mg PO Q4H PRN Nausea And 12/14/23 12/21/23 (Reglan) Vomiting metoclopramide HCl 15 mg/spray 1 spray intranasal QID PRN Vomiting 12/14/23 12/21/23 nasal spray with pump montelukast 10 mg tablet 10 mg PO DAILY 12/14/23 12/21/23 (Singulair) onabotulinumtoxinA 200 unit 200 unit IM [id number] 12/14/23 12/21/23 solution for injection (Botox) ondansetron HCl 8 mg tablet 8 mg PO Q8H PRN Nausea 12/14/23 12/21/23 prochlorperazine maleate 10 mg 10 mg PO Q4H PRN Nausea 12/14/23 12/21/23 tablet promethazine 25 mg tablet 25 mg PO DAILY PRN Migraine 12/14/23 12/21/23 Headache rimegepant 75 mg disintegrating 75 mg PO QPM 12/14/23 12/21/23 tablet (Nurtec ODT) scopolamine base 1 mg over 3 days 1 patch transdermal Q72H 12/14/23 12/21/23 transdermal patch secukinumab 150 mg/mL subcutaneous 150 mg subcut MONTHLY 12/14/23 12/21/23 pen injector (Cosentyx Pen 300 mg/2 Pens () sucralfate 1 gram tablet 1 g PO BIDWMEAL 12/14/23 12/21/23 sumatriptan succinate 100 mg 100 mg PO ONCE 12/14/23 12/21/23 tablet (Imitrex) ubrogepant 100 mg tablet (Ubrelvy) 100 mg PO ONCE 12/14/23 12/21/23 vibegron 75 mg tablet (Gemtesa) 75 mg PO DAILY 12/14/23 12/21/23 zolmitriptan 5 mg tablet (Zomig) 5 mg PO PRN PRN Migraine Headache 12/14/23 12/21/23 Allergies Allergy/AdvReac Type Severity Reaction Status Date / Time amitriptyline Allergy Other Verified 04/17/24 13:13 clindamycin Allergy Hives Verified 04/17/24 13:13 codeine Allergy Hives Verified 04/17/24 13:13 Penicillins Allergy Hives Verified 04/17/24 13:13 perphenazine Allergy Other Verified 04/17/24 13:13 Sulfa (Sulfonamide Allergy Hives Verified 04/17/24 13:13 Antibiotics) bacitracin AdvReac Hives Verified 04/17/24 13:13 [From Neosporin ([id number])] mupirocin AdvReac Hives Verified 04/17/24 13:13 neomycin AdvReac Hives Verified 04/17/24 13:13 [From Neosporin ([id number])] polymyxin B AdvReac Hives Verified 04/17/24 13:13 [From Neosporin ([id number])] Review of Systems Review of Systems: CONSTITUTIONAL: Denies body aches, fever, chills, or sweats. EYES: Denies visual changes, redness, or discharge. ENT: Denies rhinorrhea, congestion, sore throat, or otalgia. CARDIOVASCULAR: Denies chest pain, palpitations, or edema. RESPIRATORY: Denies dyspnea.+ cough, chest tightness, right rib pain GASTROINTESTINAL: Denies abdominal pain, nausea, vomiting, or diarrhea. GENITOURINARY: Denies dysuria or hematuria. SKIN: Denies rash, itching, or wounds. MUSCULOSKELETAL: Denies back pain, joint pain, or myalgia. NEUROLOGIC: Denies numbness, tingling, or weakness.+ headache PSYCH: Denies depression or anxiety. [facility] Past Medical History Medical History History of bipolar disorder History of gastroesophageal reflux (GERD) History of migraine Social History Social History Smoking status: Never smoker Substance use: never Substance use type: does not use Living arrangements: with family Spiritual care concerns: No Comments At time of signature, I have reviewed and agree with nursing past medical, surgical, social and family history unless otherwise noted. Please see nursing chart for further information. There is no relevant family history pertinent to the presenting complaint Exam Narrative: GENERAL: Mildly ill-appearing, well-nourished, and in no acute distress. HEAD: Normocephalic, atraumatic. EYES: EOMI. No redness or drainage. Conjunctivae normal. ENT: Mucous membranes pink and moist. Nares clear. No rhinorrhea. TMs normal bilaterally. Throat normal. Uvula midline. NECK: Normal AROM. Supple. No lymphadenopathy. CHEST: No respiratory distress. Clear to auscultation. HEART: Regular rate and rhythm. No murmur appreciated. MUSCULOSKELETAL: Mild tenderness of the left mid back and right lateral rib area EXTREMITIES: Normal range of motion. No edema. SKIN: Warm, dry, no rash. Capillary refill normal. Normal skin turgor. NEURO: No focal deficits. Alert and oriented x3. Gait steady. PSYCH: Normal affect. No signs of depression or anxiety. Course Course Level of Care: Express Care Visit Vital Signs Vital signs: Vital Signs Temperature 97.2 F L 04/17/24 12:32 Pulse Rate 103 H 04/17/24 12:32 Respiratory Rate 16 04/17/24 12:32 Blood Pressure 113/88 04/17/24 12:32 Pulse Oximetry 96 04/17/24 12:32 Temperature 97.2 F L 04/17/24 12:32 Pulse Rate 103 H 04/17/24 12:32 Respiratory Rate 16 04/17/24 12:32 Blood Pressure 113/88 04/17/24 12:32 Pulse Oximetry 96 04/17/24 12:32 Reviewed MDM - URI/Sore Throat MDM Narrative Medical decision making narrative: Chest x-ray suggestive of pneumonia. Patient will be treated with doxycycline as she is allergic to Augmentin and has drug interactions with Levaquin and azithromycin. Anticipatory guidance given. ED precautions given. Differential Diagnosis Differential diagnosis: Likely upper respiratory infection, viral infection and other (Pneumonia) Imaging Data Radiologist's impression: ITS Impressions Chest X-Ray 04/17/24 13:36 Impression: Focal area of right upper lobe consolidation, likely pneumonia. Follow-up exam after interval therapy should be considered to document resolution. Extensive lumbar spinal fixation hardware. Critical Care Time Critical Care Time Critical Care Time: No Discharge Plan Discharge Clinical Impression: Pneumonia Patient Disposition: Home, Self-Care Condition: Stable Instructions: Antibiotic Form, Community Acquired Pneumonia (DC) Additional Instructions: Your x-ray shows pneumonia. Please take the doxycycline as prescribed. Continue Tylenol for pain if needed. Take Mucinex to help break up any chest congestion. Follow-up with your PCP in 3 days if symptoms are not improving. Go to the ER immediately if symptoms worsen. Your blood pressure was elevated above 120/80 today at Urgent Care. This puts you above the threshold for follow up. Please schedule a followup visit with your personal physician as soon as possible, for further evaluation and treatment. Even blood pressure exceeding 120/80 may indicate pre-hypertension. Prescriptions: New doxycycline hyclate 100 mg tablet 100 mg PO BID 7 Days Qty: 14 0RF No Action cyclobenzaprine 10 mg Tablet 10 mg PO HS PRN (Reason: Pain, Mild) rabeprazole 20 mg Tablet,Delayed Release (Dr/Ec) 20 mg PO BID gabapentin 600 mg Tablet 600 mg PO HS nortriptyline 10 mg Capsule 30 mg PO HS buspirone 30 mg Tablet 30 mg PO BID duloxetine [Cymbalta] 60 mg Capsule,Delayed Release(Dr/Ec) 20 mg PO DAILY gabapentin 300 mg Tablet 300 mg PO QAM quetiapine [Seroquel] 400 mg Tablet 400 mg PO DAILY Qulipta 60 mg Tablet 60 mg PO DAILY dextroamphetamine-amphetamine [Adderall] 20 mg Tablet 20 mg PO DAILY Gemtesa 75 mg Tablet 75 mg PO DAILY montelukast [Singulair] 10 mg Tablet 10 mg PO DAILY eszopiclone [Lunesta] 2 mg Tablet 2 mg PO HS butorphanol 10 mg/mL [place],Non-Aerosol 2 spray INTRANASAL Q3H PRN (Reason: Migraine Headache) Rx Instructions: administer dose divided between both nostrils sumatriptan succinate [Imitrex] 100 mg Tablet 100 mg PO ONCE famotidine 40 mg Tablet 40 mg PO HS zolmitriptan [Zomig] 5 mg Tablet 5 mg PO PRN PRN (Reason: Migraine Headache) Rx Instructions: may repeat once after at least 2 hrs; do not exceed 2 doses in 24 hrs [id number] mg Capsule 1 cap PO Q4H PRN (Reason: MIGAINE) promethazine 25 mg Tablet 25 mg PO DAILY PRN (Reason: Migraine Headache) Ubrelvy 100 mg Tablet 100 mg PO ONCE Rx Instructions: as a single dose; may repeat once in >=2 hours after first dose if needed Nurtec ODT 75 mg Tablet,Disintegrating 75 mg PO QPM Rx Instructions: as a single dose Trudhesa 0.725 mg/pump act. (4 mg/mL) [place],Non-Aerosol 1 spray INTRANASAL ONCE Rx Instructions: may repeat in 1 hour (as a single dose). Do not exceed 2 sprays into each nostril per 24 hrs OR 6 sprays total in 7 days prochlorperazine maleate 10 mg tablet 10 mg PO Q4H PRN (Reason: Nausea) Rx Instructions: NAUSEA W/ MIGRAINE sucralfate 1 gram Tablet 1 g PO BIDWMEAL ketorolac 10 mg tablet 10 mg PO Q4H PRN (Reason: Migraine Headache) dicyclomine 20 mg Tablet 20 mg PO QID PRN (Reason: Vomiting) medroxyprogesterone 150 mg/mL suspension 150 mg IM [id number] metoclopramide HCl [Reglan] 10 mg Tablet 10 mg PO Q4H PRN (Reason: Nausea And Vomiting) Rx Instructions: WITH MIGRAINES TAKE W/ KETOROLAC AND COMPAZINE Q4H PRN Botox 200 unit recon soln 200 unit IM [id number] Cosentyx Pen (2 Pens) 150 mg/mL pen injector 150 mg SUBCUT MONTHLY ondansetron HCl 8 mg Tablet 8 mg PO Q8H PRN (Reason: Nausea) diphenoxylate-atropine 2.5-0.025 mg Tablet 1 tablet PO QID PRN (Reason: Diarrhea) scopolamine base 1 mg over 3 days Patch 3 Day 1 patch TRANSDERMAL Q72H diazepam [Valium] 5 mg Tablet 5 mg PO BID PRN (Reason: CYCLICAL VOMITING) metoclopramide HCl 15 mg/spray [place] With Pump 1 spray INTRANASAL QID PRN (Reason: Vomiting) Rx Instructions: administer into ONE nostril 30 minutes before each meal hydrocodone-acetaminophen 5-325 mg tablet 1 tablet PO Q4H PRN (Reason: pain) Qty: 20 0RF Follow-up/Referrals: PHYSICIAN,[facility]ARN[facility] HELPER [Primary Care Provider] - Stand Alone Forms: Work/School Release IP Time of Disposition: 13:52
== END 2024-04-17 14:04 | disposition home or self-care (01) ==
PROVIDERS: Emergency Provider Nurse Practitioner
DX: J18.9 Pneumonia, unspecified organism (principal); K21.9 Gastro-esophageal reflux disease without esophagitis; F31.9 Bipolar disorder, unspecified
CPT/HCPCS: 71046; 99213; G0463